=== PATIENT | female | born 2000 | race Caucasian/White ===

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

== ENCOUNTER 2022-05-07 15:32 | Outpatient (REF) | payer MEDICAID, SELFPAY | END 2022-05-07 15:33 | disposition home or self-care (01) | LOC: LBN 15:32 | PROVIDERS: PCP Nurse Practitioner Family; Visit Provider Nurse Practitioner Gerontology | DX: N39.0 Urinary tract infection, site not specified (principal) | CPT/HCPCS: 87077; 87086; 87186 ==

== ENCOUNTER 2023-05-11 16:17 | Emergency (ER) | payer MEDICAID, SELFPAY ==
[2023-05-11 16:21] VITALS: BP 140/90; PULSE 105; RESP 20; TEMP 36.7; O2SAT 99
--- NOTE | 2023-05-11 19:42 | ED.GENADUL_ITS ---
Discharge Plan Disposition Patient Disposition: Home Condition: Stable Discharge Details Clinical Impression: Folliculitis Primary Care Provider: Maribel Beckford ED Provider: Minh Bustillo Home Meds and New Rx's Prescriptions: New sulfamethoxazole-trimethoprim [Bactrim DS] 800-160 mg tablet 1 tab PO BID Qty: 14 0RF Continued (DME) Deon Aerosol [place] Enhancer spacer See Dose Instructions .ROUTE .MEDSUPPLY Qty: 1 0RF Dose Instruction: As directed Rx Instructions: As directed albuterol sulfate 90 mcg/actuation HFA aerosol inhaler 2 inh IH Q4H PRN (Reason: shortness of breath or wheezing) Qty: 8.5 3RF Rx Instructions: 2 puffs every 4 hours as needed ketoconazole 1 % shampoo 1 applic topical Q3D 56 Days Qty: 200 1RF Discharge Instructions Instructions: Folliculitis (ED) Additional Instructions: if not better within a week follow up with your primary care provider if you feel more ill, have severe worsening pain or fevers return to the emergency department Medical Decision Making 23 yo female comes in with chief complaint of rash in her suprapubic region for 3 days. Denies fevers, chills, vaginal bleeding or discahrge. She has multiple papules and pustules on an erythematous base at the base of the hair follicles, no current drainage, no spreading erythema. Exam consistent with folliculitis, will place on mupirocin and bactrim, advised to f/u with pcp and return precautions given Differential Diagnosis Differential Diagnosis: folliculitis, cellulitis Medical Records Medical records reviewed: Yes I reviewed the patient's medical records. Lab Data Lab results reviewed: Yes I reviewed the patient's lab results. HPI General Mode of arrival: ambulatory . Date/Time Provider Initiated Documentation: 05/11/23 16:24 . Limitations to Documentation: no limitations . Information obtained by: patient . History of Present Illness 23 year old F presents to the emergency department with the chief complaint of rash, described as moderate, Patient started experiencing this day(s) (3) and it has been constant. No relieving factors improve symptom(s), No exacerbating factors reported . Patient notes no other symptoms.. Patient did receive the following treatments prior to arrival, none Related Data Home Medications Medication Instructions Recorded Confirmed inhalational spacing device (Deon #1 ea 01/28/19 03/28/23 Aerosol [place] Enhancer spacer) ketoconazole 1 % shampoo 1 applic topical Q3D 8 weeks #200 02/15/22 04/11/22 mL albuterol sulfate 90 mcg/actuation 2 inh inhalation Q4H PRN shortness 02/26/22 03/28/23 aerosol inhaler of breath or wheezing #8.5 grams sulfamethoxazole 800 1 tab PO BID #14 tabs 05/11/23 mg-trimethoprim 160 mg tablet (Bactrim DS) Previous Rx's Medication Instructions Recorded inhalational spacing device (Deon #1 ea 01/28/19 Aerosol [place] Enhancer spacer) ketoconazole 1 % shampoo 1 applic topical Q3D 8 weeks #200 02/15/22 mL albuterol sulfate 90 mcg/actuation 2 inh inhalation Q4H PRN shortness 02/26/22 aerosol inhaler of breath or wheezing #8.5 grams sulfamethoxazole 800 1 tab PO BID #14 tabs 05/11/23 mg-trimethoprim 160 mg tablet (Bactrim DS) Allergies Allergy/AdvReac Type Severity Reaction Status Date / Time cephalexin AdvReac Rash Verified 05/22/22 10:32 General Stated Complaint: RashLesion RENATA: 4 Review of Systems All systems reviewed & are unremarkable except as noted in HPI and below Constitutional Constitutional: Denies chills, Denies fever(s) and Denies weakness Cardiovascular Cardiovascular: Denies chest pain and Denies dyspnea Respiratory Respiratory: Denies cough and Denies dyspnea Gastrointestinal Gastrointestinal: Denies abdominal pain, Denies nausea and Denies vomiting Musculoskeletal Musculoskeletal: Denies joint swelling Integumentary/Breasts Skin/Breast: Reports lesions Neurologic Neurologic: Denies weakness [facility] All Active Problems (Updated 05/11/23 @ 19:49 by Minh Bustillo MD) Folliculitis (Acute) Acute chest wall pain (Acute) Left shoulder strain (Acute) Chronic Interstitial Cystitis (Chronic) Urology evaluation 12/10 at [facility] Lumbar back pain (Acute) Intermittent asthma (Chronic) Depot contraception (Chronic) Recurrent urinary tract infection (Chronic) Per verbal HX. Normal renal US 11/2018 Nocturnal cough (Chronic) Previous records indicate trial of albuterol for chronic coughing. 01/2018 Back pain (Chronic) in physical therapy. Medical History (Updated 05/11/23 @ 19:49 by Minh Bustillo MD) Subcutaneous mass Normal US Family History Mother Anemia Father Anxiety Social History Smoking/Tobacco Use Status: Current-Occasional Tobacco Type: e-cigarettes Second Hand Exposure: No Smoking risk assessment performed?: Yes Alcohol Intake: current Alcohol Intake frequency: a few times a month Details: Uses a Candace ocassionally and tries alcohol on occasion Drug use: Occasionally Substance use type: marijuana Details: Usually uses like one day on the weekend and then goes to sleep Adopted: No Foster care: No Household members: family Communication Needs: Corrective Lenses Pets and animals: Yes (2 dogs, chickens, goats) Pets and animals: dog(s) and farm animals What type of physical activity do you participate in: other Details: Ultimate Frisbee Seatbelt use: always Helmet use: Yes Fire extinguisher in home: Yes Carbon monox detector in home: Yes Firearms in home: No Exam Const General: no acute distress Orientation: alert HENMT Head: normal to inspection Ears: external ears normal General nose exam: external nose normal Mouth: moist mucous membranes Eyes General: appearance normal, both eyes and all related structures Neck Neck: normal visual inspection Resp Effort & Inspection: normal respiratory effort and able to speak in complete sentences Cardio Rate: regular rate Skin General skin exam: elasticity normal Neuro General: patient alert and patient oriented x3 Extrem General: normal to inspection Psych Mental Status: mental status grossly normal Course Vital Signs Vital signs: Vital Signs Temperature 36.7 C 05/11/23 16:21 Pulse 105 H 05/11/23 16:21 Respiratory Rate 20 05/11/23 16:21 Blood Pressure 140/90 05/11/23 16:21 Pulse Oximetry 99 05/11/23 16:21 Temperature 36.7 C 05/11/23 16:21 Pulse 105 H 05/11/23 16:21 Respiratory Rate 20 05/11/23 16:21 Respiratory Effort Normal, Non-Labored 05/11/23 16:24 Blood Pressure 140/90 05/11/23 16:21 Blood Pressure Position Sitting 05/11/23 16:21 Pulse Oximetry 99 05/11/23 16:21 Oxygen Delivery Method Room Air 05/11/23 16:21 Oxygen Flow Rate 0 05/11/23 16:21
== END 2023-05-11 20:10 | disposition home or self-care (01) ==
PROVIDERS: Emergency Provider Emergency Medicine; PCP Nurse Practitioner Family
DX: L73.9 Follicular disorder, unspecified (principal)
CPT/HCPCS: 99283; 99282

== ENCOUNTER 2023-12-04 15:59 | Outpatient (REF) | payer MEDICAID, SELFPAY ==
[2023-12-05 11:40] LABS: HSV 1 DNA Result Positive (Negative); HSV 2 DNA Result Negative (Negative)
== END 2023-12-04 16:00 | disposition home or self-care (01) ==
LOC: NCHCN 15:59
PROVIDERS: PCP Nurse Practitioner Family; Visit Provider Physician Assistant Medical
DX: L98.9 Disorder of the skin and subcutaneous tissue, unspecified (principal)
CPT/HCPCS: 87529

== ENCOUNTER 2024-01-08 20:27 | Emergency (ER) | payer MEDICAID, SELFPAY ==
[2024-01-08 20:30] VITALS: BP 168/84; PULSE 110; RESP 16; TEMP 36.3; O2SAT 100
[2024-01-08 20:35] VITALS: RESP 16
--- NOTE | 2024-01-08 20:44 | ED.GENADUL_ITS ---
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 Primary Care Provider: Maribel Beckford ED Provider: Lucio Brunner Home Meds and New Rx's Prescriptions: Continued (DME) Deon Aerosol [place] Enhancer spacer See Dose Instructions .ROUTE .MEDSUPPLY Qty: 1 0RF Dose Instruction: As directed Rx Instructions: As directed albuterol sulfate 90 mcg/actuation HFA aerosol inhaler 2 inh IH Q4H PRN (Reason: shortness of breath or wheezing) Qty: 8.5 3RF Rx Instructions: 2 puffs every 4 hours as needed albuterol sulfate [Proventil HFA] 90 mcg/actuation HFA aerosol inhaler 2 puff inhalation Q6H PRN (Reason: shortness of breath or wheezing) Qty: 8.5 0RF Discharge Instructions Instructions: Thoracic Outlet Syndrome (ED), Peripheral Neuropathy (ED) Additional Instructions: You were seen in the emergency department for your neuropathy of your left arm, I suspect you have a neuropathy somewhere along the path of the radial nerve. You work with your hands and you could have an element of carpal tunnel playing into the numbness of your hand, to treat this please take 1 Aleve every 12 hours for a few days, you may apply topical Voltaren gel to your wrist and elbow and shoulder for trial of relief as well. You can use an [id number] wrist brace especially at night while you sleep to try and relieve the symptoms. You also may have an element of thoracic outlet syndrome at play. Please follow-up with your primary care provider or see an orthopedic doctor be referred to physical therapy to treat these issues. Your circulation of your left arm was normal, please return for any severe increase in swelling of the left arm especially with skin changes, coolness to touch, inability to move the arm. Referrals: Maribel Beckford, [employer] [Primary Care Provider] - Discharge Data Discharge Date/Time-TO BE ENTERED AT DEPARTURE: 01/08/24 21:13 HPI General Date/Time Provider Initiated Documentation: 01/08/24 20:43 . HPI Narrative: 23 year-old female presents to ED today by POV/ambulating with her spouse with a chief complaint of L arm tingling, through the tripcep, and her thumb and index finger went numb the other day- seems to come and go, works with her hands. Quality described as tingling, no radiation to skin changes, unilateral arm swelling, trauma, neck pain, fever, coolness to touch, or severe pain. Severity is described as moderate. Palliating factors include nothing specific attempted. Provoking factors include nothing specific. Patient not anticoagulated. Related Data Home Medications Medication Instructions Recorded Confirmed inhalational spacing device (Deon #1 ea 01/28/19 01/08/24 Aerosol [place] Enhancer spacer) albuterol sulfate 90 mcg/actuation 2 inh inhalation Q4H PRN shortness 02/26/22 01/08/24 aerosol inhaler of breath or wheezing #8.5 grams albuterol sulfate 90 mcg/actuation 2 puff inhalation Q6H PRN 07/30/23 01/08/24 aerosol inhaler (Proventil HFA) shortness of breath or wheezing #8.5 grams Previous Rx's Medication Instructions Recorded inhalational spacing device (Deon #1 ea 01/28/19 Aerosol [place] Enhancer spacer) albuterol sulfate 90 mcg/actuation 2 inh inhalation Q4H PRN shortness 02/26/22 aerosol inhaler of breath or wheezing #8.5 grams albuterol sulfate 90 mcg/actuation 2 puff inhalation Q6H PRN 07/30/23 aerosol inhaler (Proventil HFA) shortness of breath or wheezing #8.5 grams Allergies Allergy/AdvReac Type Severity Reaction Status Date / Time cephalexin AdvReac Rash Verified 01/08/24 20:48 General Stated Complaint: GenMedical RENATA: 4 Review of Systems All systems reviewed & are unremarkable except as noted in HPI and below Exam Narrative Exam Narrative: GENERAL APPEARANCE: Well-nourished, non-toxic, awake and alert, atraumatic, no acute distress. SKIN: Warm, pink, dry, intact, without rashes/lesions/ulcerations. HEAD: Normocephalic, atraumatic, normal hair distribution for gender/age. EYES: Pupils PERRLA, EOMs intact without nystagmus, normal conjunctiva, no exudates on lids/lashes. ENT: Nares patent, no circumoral cyanosis, no facial swelling NECK: Supple, trachea midline, painless cervical ROM. LUNGS/CHEST: Non-labored respirations, normal A/P diameter, symmetrical expansion, no chest wall deformity HEART (CV/PV): Regular rate, L radial pulse 2+, no peripheral edema, no JVD. ABDOMEN: Soft, non-distended, no guarding. MSK: Normal ROM, no swelling/deformity to bilateral UEs or LEs, moving all extremities without weakness, no cyanosis, spine midline without tenderness, normal curvature. L UE: TTP at radial groove, tinnels negative at carpal tunnel & medial/lateral condyles, no tenderness to trapezius, adson's test shows normal circulation, sensation intact, strength 5/5, ROM intact, no unilateral arm swelling or focal nodules or skin changes. Costoclavicular manuever causes some symptoms- possible thoracic outlet. NEURO: Mental Status AAOx4 - alert to person, place, time, events No facial droop, no forehead involvement. Motor: No focal weakness - strength 5/5 in bilateral UEs and LEs, proximal and distal, symmetric. Sensory: sensation intact to light touch globally. Gait normal: patient ambulated without ataxia into ED room. PSYCH: euthymic, cooperative, pleasant, appropriate speech Course Vital Signs Vital signs: Vital Signs Temperature 36.3 C L 01/08/24 20:30 Pulse 110 H 01/08/24 20:30 Respiratory Rate 16 01/08/24 20:30 Blood Pressure 168/84 H 01/08/24 20:30 Pulse Oximetry 100 01/08/24 20:30 Temperature 36.3 C L 01/08/24 20:30 Temperature Source Tympanic 01/08/24 20:30 Pulse 110 H 01/08/24 20:30 Respiratory Rate 16 01/08/24 20:35 Respiratory Effort Normal 01/08/24 20:35 Respiratory Depth Normal 01/08/24 20:35 Respiratory Pattern Normal 01/08/24 20:35 Blood Pressure 168/84 H 01/08/24 20:30 Blood Pressure Position Sitting 01/08/24 20:30 Pulse Oximetry 100 01/08/24 20:30 Oxygen Delivery Method Room Air 01/08/24 20:30 Oxygen Flow Rate 0 01/08/24 20:30 Pain Level 0 01/08/24 20:30 Medical Decision Making This dictation utilizes [id number] dictation software and may contain unedited grammatical errors. 23 y/o F presents to ED today with a chief complaint of intermittent tingling to L arm, thumb and first finger most focally, and burning sensation at radial groove of tricep- no recent trauma, no unilateral arm swelling, no skin changes, no neck tenderness. Patient works with her hands a lot, reports its worse after work. Patients' medical history: L shoulder strain, back pain. Family and social history: noncontributory. Pertinent exam findings / vital signs include L UE: TTP at radial groove, tinnels negative at carpal tunnel & medial/lateral condyles, no tenderness to trapezius, adson's test shows normal circulation, sensation intact, strength 5/5, ROM intact, no unilateral arm swelling or focal nodules or skin changes. Costoclavicular manuever causes some symptoms- possible thoracic outlet. Differential / pathologies of concern include Thoracic Outlet Syndrome, Radial Neuropathy, Carpal Tunnel Syndrome, not NV compromise. Diagnostic studies of: -none. Interventions of: -Recommend NSAIDs, bracing, PT > Ortho f/u. ED Course/Assessment/Plan: 23-year-old female seen with intermittent neuropathy along the distribution of the radial nerve, she has full range of motion and strength in the arm she works with her hands, I suspect an element of thoracic outlet due to prior shoulder strain as well as possible carpal tunnel syndrome. Recommend she start bracing at night, applying [id number] Voltaren gel to the joints of the left arm as needed and taking regular doses of Aleve and following up with orthopedics or physical therapy visits. Strict return criteria for unilateral arm swelling, paralysis of left arm, temperature changes. Findings not consistent with NV compromise, trauma. Disposition of Neuropathy of Left Radial Nerve. Patient verbalized understanding of the plan and return to ED criteria and engaged in shared decision making. Medical Records Medical records reviewed: Yes I reviewed the patient's medical records. Quality:[facility] Health Related Social Needs: No Data to Display PFSH All Active Problems (Updated 01/08/24 @ 21:03 by MEERA Haddad) Neuropathy of left radial nerve (Acute) Acute chest wall pain (Acute) Left shoulder strain (Acute) Chronic Interstitial Cystitis (Chronic) Urology evaluation 12/10 at [facility] Lumbar back pain (Acute) Intermittent asthma (Chronic) Depot contraception (Chronic) Recurrent urinary tract infection (Chronic) Per verbal HX. Normal renal US 11/2018 Nocturnal cough (Chronic) Previous records indicate trial of albuterol for chronic coughing. 01/2018 Back pain (Chronic) in physical therapy. Medical History (Updated 01/08/24 @ 21:03 by MEERA Haddad) Subcutaneous mass Normal US Family History Mother Anemia Father Anxiety Social History Smoking/Tobacco Use Status: Current-Occasional Tobacco Type: e-cigarettes Second Hand Exposure: No Smoking risk assessment performed?: Yes Alcohol Intake: former Details: Uses a Candace ocassionally and tries alcohol on occasion Drug use: Occasionally Substance use type: marijuana Details: Usually uses like one day on the weekend and then goes to sleep Adopted: No Foster care: No Household members: family Communication Needs: Corrective Lenses Pets and animals: Yes (2 dogs, chickens, goats) Pets and animals: dog(s) and farm animals What type of physical activity do you participate in: other Details: Ultimate Frisbee Seatbelt use: always Helmet use: Yes Fire extinguisher in home: Yes Carbon monox detector in home: Yes Firearms in home: No PAWSS Have you Been Recently Intoxicated or Drunk Within the Last 30 days?: Yes Have you Ever Experienced Previous Episodes of Alcohol Withdrawal?: No Have you ever Experienced Withdrawal Seizures?: No Result: 1
== END 2024-01-08 21:13 | disposition home or self-care (01) ==
PROVIDERS: Emergency Provider Physician Assistant; PCP Nurse Practitioner Family
DX: G56.32 Lesion of radial nerve, left upper limb (principal)
CPT/HCPCS: 99283

== ENCOUNTER 2024-05-10 21:00 | Emergency (ER) | payer MEDICAID, SELFPAY ==
[2024-05-10 21:07] VITALS: BP 159/99; PULSE 110; RESP 16; TEMP 37; O2SAT 99
[2024-05-10 22:25] VITALS: BP 147/86; PULSE 109; RESP 14; TEMP 37.4; O2SAT 99
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
[2024-05-10] MEDS: Cyclobenzaprine 10 MG TAB PO (23:38)
[2024-05-10] MEDS: Acetaminophen 500 MG TAB 1000 MG PO (23:38)
[2024-05-10] MEDS: Ketorolac 15 MG/ML VIAL IVP (23:38)
[2024-05-11 01:35] VITALS: BP 134/83; PULSE 82; RESP 16; TEMP 36.8; O2SAT 97
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
== END 2024-05-11 02:20 | disposition home or self-care (01) ==
PROVIDERS: Emergency Provider Student in an Organized Health Care Education/Training Program
DX: M54.50 Low back pain, unspecified (principal); V43.62XA Car passenger injured in collision with other type car in traffic accident, initial encounter
CPT/HCPCS: 96374; 99284; 72131; 99283; J1885

== ENCOUNTER 2024-08-26 15:24 | Outpatient (REF) | payer MEDICAID, SELFPAY ==
[2024-08-26 21:45] LABS: Bilirubin Negative (Negative); Blood Negative (Negative); Clarity Clear (Clear); Glucose Negative (Negative); Ketones Negative (Negative); Leukocyte Esterase Negative (Negative); Nitrite Negative (Negative); Urobilinogen 0.2 mg/dL (Up to 0.2); pH 7.5 (5-8)
== END 2024-08-26 15:25 | disposition home or self-care (01) ==
LOC: LBN 15:24
PROVIDERS: Visit Provider Physician Assistant
DX: R39.9 Unspecified symptoms and signs involving the genitourinary system (principal); R10.9 Unspecified abdominal pain; N39.0 Urinary tract infection, site not specified; M54.9 Dorsalgia, unspecified
CPT/HCPCS: 81003

== ENCOUNTER 2024-08-30 01:26 | Outpatient (CLI) | payer MEDICAID, SELFPAY ==
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
== END 2024-08-30 01:46 ==
LOC: DI 01:26
PROVIDERS: Visit Provider Physician Assistant
DX: R10.9 Unspecified abdominal pain (principal)
CPT/HCPCS: 76770

== ENCOUNTER 2025-07-07 15:09 | Outpatient (REF) | payer OTHER, SELFPAY ==
--- NOTE | 2025-07-07 10:15 | PAPFT_PTH ---
PATIENT: Cira Bee LOC: [facility]#:[id number] AGE/SX: 25/F ROOM: RE07/07/[address]: My Ji : 2000 BED: DIS: 07/07/2025 SPEC #: [id number] RECD: 07/07/25 17:39 STATUS: ALFONSO REQ #: [id number] OSCAR: 07/07/25 10:[address]: My Ji DEPT: [facility] Cytology RECD BY: Radha King Tissues: 1 - CX/ENDOCX FOR PAP SMEARS Procedures: PAP THIN PREP/[facility] Screening Comments: [id number] (CHLAMYDIA/GC)
[2025-07-07 16:51] LABS: ALT 50 U/L (14-59); AST 23 U/L (15-37); Albumin 4.2 g/dL (3.4-5.0); Alkaline Phosphatase 92 U/L (46-116); Anion Gap 11.7 mmol/L (3-11); BUN 11 mg/dL (7-18); Bilirubin, Total 0.6 mg/dL (0.2-1.0); CO2 25.3 mmol/L (21.0-32.0); Calcium 9.8 mg/dL (8.5-10.1); Calculated LDL 127 mg/dL (<100); Chloride 100 mmol/L (98-107); Cholesterol 194 mg/dL (<200); Estimated GFR 106.11 (mL/min/1.73m2); Glucose 84 mg/dL (74-106); HDL Cholesterol 41 mg/dL (>or=50); Potassium 3.7 mmol/L (3.5-5.1); Sodium 137 mmol/L (136-145); Total Protein 7.5 g/dL (6.4-8.2); Triglyceride 132 mg/dL (<150)
[2025-07-08 11:14] LABS: Chlamydia Result Negative (Negative); GC Result Negative (Negative)
[2025-07-08 19:39] LABS: Hepatitis C Ab w Rflx HCV PCR Negative (Negative)
[2025-07-08 19:44] LABS: HIV-1/2 Ag & Ab Screen Negative (Negative)
[2025-07-11 12:41] LABS: Syphilis Serology (RPR) Negative (Negative)
== END 2025-07-07 15:10 | disposition home or self-care (01) ==
LOC: NCHCN 15:09
PROVIDERS: PCP Nurse Practitioner Family; Visit Provider Nurse Practitioner Family
DX: Z12.4 Encounter for screening for malignant neoplasm of cervix (principal)
CPT/HCPCS: 80053; 80061; 86803; 87389; 87491; 87591; 88142; 86592